=== PATIENT | female | born 1970 | race Caucasian/White ===

== ENCOUNTER → 2016-09-14 13:15 | Emergency (ER) | payer OTHER | END | disposition left against medical advice (07) | LOC: ER 13:15 | DX: Z53.21 Procedure and treatment not carried out due to patient leaving prior to being seen by health care provider (principal) ==

== ENCOUNTER 2016-09-14 21:47 | Emergency (ER) | payer OTHER | END 2016-09-15 00:30 | disposition home or self-care (01) | LOC: ER 21:47 | DX: R55 Syncope and collapse (principal); M25.511 Pain in right shoulder; M54.2 Cervicalgia; J44.9 Chronic obstructive pulmonary disease, unspecified; K21.9 Gastro-esophageal reflux disease without esophagitis; E66.9 Obesity, unspecified; I10 Essential (primary) hypertension; Z90.49 Acquired absence of other specified parts of digestive tract | CPT/HCPCS: 36415 ==

== ENCOUNTER 2016-10-28 21:50 | Emergency (ER) | payer OTHER | END 2016-10-29 02:49 | disposition home or self-care (01) | LOC: ER 21:50 | DX: R42 Dizziness and giddiness (principal); R07.9 Chest pain, unspecified; K21.9 Gastro-esophageal reflux disease without esophagitis; E66.9 Obesity, unspecified; I10 Essential (primary) hypertension; Z90.49 Acquired absence of other specified parts of digestive tract | CPT/HCPCS: 36415; 96374 ==

== ENCOUNTER 2016-11-01 22:03 | Emergency (ER) | payer OTHER | END 2016-11-02 02:10 | disposition home or self-care (01) | LOC: ER 22:03 | DX: M54.42 Lumbago with sciatica, left side (principal); R07.89 Other chest pain; K21.9 Gastro-esophageal reflux disease without esophagitis; I10 Essential (primary) hypertension; E66.9 Obesity, unspecified; Z68.41 Body mass index [BMI] 40.0-44.9, adult; Z90.49 Acquired absence of other specified parts of digestive tract; Z79.899 Other long term (current) drug therapy | CPT/HCPCS: 36415; 96374; 96375; J1100; J1885 ==